=== PATIENT | male | born 1995 | race Hispanic/Latino ===

== ENCOUNTER 2020-12-20 18:15 | Emergency (ER) | payer OTHER ==
[2020-12-20] MEDS ORDERED: ZIPRASIDONE MESYLATE 20 MG VIAL IM ONE (18:25)
[2020-12-20] MEDS ORDERED: LORazepam 2 MG/ML VIAL IM ONE (18:30)
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
[2020-12-20 19:07] LABS: BUN/Creatinine Ratio 17; Blood Urea Nitrogen 19 mg/dL (9-20); Hemolysis Index 70
[2020-12-20 19:09] LABS: Alanine Aminotransferase 63 units/L (7-56); Albumin 4.7 g/dL (3.9-5)
[2020-12-20 19:11] LABS: Basophils % (Auto) 0.1 % (0.0-1.8); Hematocrit 45.6 % (35.5-45.6); Hemoglobin 15.9 gm/dl (11.8-15.2); Lymphocytes # (Auto) 0.9 K/mm3 (1.2-5.4); Lymphocytes % (Auto) 8.8 % (13.4-35.0); Mean Corpuscular HGB Conc 35 % (32-34); Mean Corpuscular Volume 91 fl (84-94); Monocytes # (Auto) 1.1 K/mm3 (0.0-0.8); Monocytes % (Auto) 10.8 % (0.0-7.3); Platelet Count 230 K/mm3 (140-440); Red Blood Count 5.04 M/mm3 (3.65-5.03); Red Cell Distribution Width 12.7 % (13.2-15.2)
[2020-12-20 19:14] LABS: Bilirubin,Direct < 0.2 mg/dL (0-0.2)
[2020-12-20 23:13] LABS: Mucus,Urine 3+ /HPF
[2020-12-20 23:14] LABS: Amphetamine Screen,Urine PRESUMPTIVE NEGATIVE; Benzodiazepines Screen,Urine PRESUMPTIVE NEGATIVE; Bilirubin,Urine NEG (Negative); Blood,Urine SM (Negative); Cannabinoid Screen,Urine PRESUMPTIVE POSITIVE; Cocaine Screen,Urine PRESUMPTIVE NEGATIVE; Color,Urine Yellow (Yellow); Methadone Screen,Urine PRESUMPTIVE NEGATIVE; Opiate Screen,Urine PRESUMPTIVE NEGATIVE
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
--- NOTE | 2020-12-21 12:06 | Event Note ---
Date: 12/21/20 S: "I'm feeling great." O: Vital signs stable. Patient is calm and cooperative. A: Acute psychosis, homicidal ideation P: 1013; awaiting acute inpatient psychiatric placement
[2020-12-21] MEDS ORDERED: SERTRALINE 25 MG TAB PO ONE (12:21)
[2020-12-21] MEDS: hydrOXYzine PAMOATE 25 MG CAP PO SCH ×2 (14:18→20:23)
[2020-12-22 08:18] VITALS: BP 136/86
[2020-12-22] MEDS: hydrOXYzine PAMOATE 25 MG CAP PO SCH ×2 (08:34→14:01)
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
--- NOTE | 2020-12-22 10:58 | Event Note ---
Date: 12/22/20 This patient presented 2 days ago with acute psychosis and homicidal ideations with questionable homicidal attempt on family. For this reason he has been made a 1013 and an ED hold. He has been seen by the psychiatric team and their plan is for inpatient stabilization. The patient was previously medically cleared by my colleague. No events overnight as per the ED psychiatric nurse, Es. No new meds for reconciliation. Vital signs reassuring over the past 24 hours, as listed below. We will continue to monitor the patient during his ED course. Vital Signs - 24 hr 12/21/20 12/21/20 12/22/20 19:30 20:00 08:17 Temperature 97.8 F 98.0 F Pulse Rate 70 64 Respiratory 16 97 H Rate Blood Pressure 120/68 136/86 [Left] O2 Sat by Pulse 99 100 Oximetry
== END 2020-12-22 15:59 ==
LOC: ED 18:15 → EEVIPCON 18:15 → ED 12-22 15:59
DX: F23 Brief psychotic disorder (principal); Y09 Assault by unspecified means; Z03.818 Encounter for observation for suspected exposure to other biological agents ruled out
CPT/HCPCS: 36415; 80048; 80076; 80307; 81001; 85025; 96372; 99285; J2060; J3486; Q0177; U0003; 80320; G0480